=== PATIENT | male | born 1950 | race Caucasian/White ===

== ENCOUNTER 2024-01-16 09:22 | Inpatient (IN) | payer MEDICARE ==
[2024-01-16] VITALS (36 sets, daily range): BP systolic 77–129; BP diastolic 54–116; PULSE 71–135; RESP 11–30; TEMP 97.5–98.6
[~2024-01-16] VITALS: Ht 167.6 cm; Wt 79.8 kg
[2024-01-16] MEDS: SODIUM CHLORIDE 0.9% 1,000 ML IV ONE (09:52)
[2024-01-16 10:18] LABS: BASOPHILS % 0.8 % (0.0-2.0); EOSINOPHILS % 1.2 % (0.0-5.0); HEMATOCRIT. 40.3 % (42.0-52.0); HEMOGLOBIN. 13.5 g/dL (14.0-18.0); MEAN CORPUSCULAR HEMOGLOBIN 31.4 pg (28.0-32.0); MEAN CORPUSCULAR HGB CONC 33.4 g/dL (31.0-37.0); MEAN CORPUSCULAR VOLUME 93.8 fL (80.0-94.0); MEAN PLATELET VOLUME 9.7 fl (7.4-10.4); MONOCYTES % 8.7 % (2.0-8.0); NEUTROPHILS % 62.3 % (40.0-76.0); PLATELET 227 x1000/uL (130-400); RED CELL DISTRIBUTION WIDTH 13.7 % (11.6-14.6); WHITE BLOOD COUNT 6.5 x1000/uL (4.5-11.0)
[2024-01-16] MEDS: ADENOSINE 3 MG/ML 2ML VIAL IV ONE ×3 (10:19→10:20)
[2024-01-16 10:22] LABS: CARBON DIOXIDE 27 mEq/L (21-32); CHLORIDE 107 mEq/L (98-107); POTASSIUM 4.1 mEq/L (3.5-5.1); SODIUM 140 mEq/L (136-145)
[2024-01-16 10:23] LABS: CALCIUM 8.7 mg/dL (8.7-10.4)
[2024-01-16] MEDS: DILTIAZEM HCL 5MG/ML 5ML VIAL IV ONE (10:23)
[2024-01-16 10:28] LABS: CREATININE 1.1 mg/dL (0.6-1.3); GLUCOSE 101 mg/dL (70-105); UREA NITROGEN BLOOD 13 mg/dL (9-23)
[2024-01-16 10:29] LABS: TROPONIN I HIGH SENSITIVITY 18 ng/L (3.0-53)
[2024-01-16] MEDS ORDERED: DILTIAZEM HCL 60MG TABLET PO ONE (10:45)
[2024-01-16 11:25] LABS: CLARITY URINE CLEAR (CLEAR); COLOR URINE YELLOW (YELLOW); GLUCOSE URINE NEGATIVE (NEGATIVE); KETONES URINE NEGATIVE (NEGATIVE); LEUKOCYTE ESTERASE URINE NEGATIVE (NEGATIVE); NITRITE URINE NEGATIVE (NEGATIVE); OCCULT BLOOD URINE NEGATIVE (NEGATIVE); PROTEIN URINE NEGATIVE (NEGATIVE); SPECIFIC GRAVITY URINE 1.016 (1.005-1.030); UROBILINOGEN URINE 0.2 E.U./dL (0.2-1.0)
[2024-01-16 11:35] LABS: INR 0.9; PROTHROMBIN TIME 10.4 sec (9.6-11.0)
[2024-01-16] MEDS: DILTIAZEM HCL 30MG TABLET PO NR (12:30)
[2024-01-16] MEDS: ENOXAPARIN 60MG/0.6ML SYR SUBCUT ONE (12:34)
[2024-01-16] MEDS: DILTIAZEM HCL 5MG/ML 5ML VIAL IV NR (13:49)
[2024-01-16] MEDS ORDERED: AMIODARONE HCL 900 MG in DEXT 5% WATER 482 ML IV SCH (14:00)
[2024-01-16] MEDS: FUROSEMIDE 40MG/4ML VIAL IVP NR (14:14)
[2024-01-16] MEDS ORDERED: DILTIAZEM HCL 125 MG in DEXT 5% WATER 100 ML IV PRN (14:15)
[2024-01-16] MEDS: METOPROLOL TARTRATE 50MG TABLET PO NR (14:15)
[2024-01-16] MEDS: AMIODARONE HCL 900 MG in DEXT 5% WATER 482 ML IV SCH (14:17)
[2024-01-16] MEDS ORDERED: ONDANSETRON HCL 4MG/2ML INJ IV PRN (17:30)
[2024-01-16] MEDS: ENOXAPARIN 80MG/0.8ML SYR SUBCUT NR (19:03)
[2024-01-16] MEDS: METOPROLOL TARTRATE 50MG TABLET PO SCH (21:00)
[2024-01-16] MEDS: AMIODARONE HCL 200 MG TABLET PO SCH (21:28)
[2024-01-17] VITALS (103 sets, daily range): BP systolic 76–132; BP diastolic 25–117; PULSE 77–138; RESP 0–37; TEMP 97.4–99.5
[2024-01-17] MEDS: DILTIAZEM HCL 125 MG in DEXT 5% WATER 100 ML IV PRN (01:29)
[2024-01-17 06:49] LABS: BASOPHILS % 0.3 % (0.0-2.0); EOSINOPHILS % 0.6 % (0.0-5.0); HEMATOCRIT. 37.8 % (42.0-52.0); HEMOGLOBIN. 12.9 g/dL (14.0-18.0); LYMPHOCYTES % 21.1 % (20.0-50.0); MEAN CORPUSCULAR HEMOGLOBIN 31.6 pg (28.0-32.0); MEAN CORPUSCULAR HGB CONC 34.2 g/dL (31.0-37.0); MEAN CORPUSCULAR VOLUME 92.4 fL (80.0-94.0); MEAN PLATELET VOLUME 9.8 fl (7.4-10.4); PLATELET 235 x1000/uL (130-400); RED BLOOD CELL COUNT 4.09 mill/uL (4.7-6.1); RED CELL DISTRIBUTION WIDTH 13.6 % (11.6-14.6); WHITE BLOOD COUNT 8.7 x1000/uL (4.5-11.0)
[2024-01-17 07:15] LABS: CARBON DIOXIDE 23 mEq/L (21-32); CHLORIDE 108 mEq/L (98-107); POTASSIUM 4.1 mEq/L (3.5-5.1); SODIUM 140 mEq/L (136-145)
[2024-01-17 07:16] LABS: CALCIUM 8.8 mg/dL (8.7-10.4)
[2024-01-17 07:21] LABS: CREATININE 0.9 mg/dL (0.6-1.3); GLUCOSE 107 mg/dL (70-105); UREA NITROGEN BLOOD 11 mg/dL (9-23)
[2024-01-17 09:12] LABS: *AMPHETAMINES SCREEN URINE NEGATIVE (NEGATIVE); *BARBITURATES SCREEN URINE NEGATIVE (NEGATIVE); *BENZODIAZEPINES SCREEN URINE NEGATIVE (NEGATIVE); *COCAINE SCREEN URINE NEGATIVE (NEGATIVE); CANNABINOID URINE SCREEN NEGATIVE (NEGATIVE); ECSTASY MDMA SCREEN URINE NEGATIVE (NEGATIVE); METHADONE URINE SCREEN NEGATIVE (NEGATIVE); OPIATES URINE SCREEN NEGATIVE (NEGATIVE); PHENCYCLIDINE URINE SCREEN NEGATIVE (NEGATIVE)
[2024-01-17] MEDS: MIDODRINE HCL 5MG TABLET PO SCH (10:56)
[2024-01-17] MEDS: DIGOXIN 500MCG/2ML AMP IV NR (10:57)
[2024-01-17] MEDS: METOPROLOL TARTRATE 5MG/5ML VIAL IV PRN (17:08)
[2024-01-17] MEDS: DIGOXIN 500MCG/2ML AMP IV SCH (18:07)
[2024-01-17] MEDS: ACETAMINOPHEN 325MG TABLET PO PRN (19:56)
[2024-01-18] VITALS (87 sets, daily range): BP systolic 82–153; BP diastolic 38–134; PULSE 67–137; RESP 9–27; TEMP 97.8–99.2
[2024-01-18 07:06] LABS: CARBON DIOXIDE 24 mEq/L (21-32); CHLORIDE 109 mEq/L (98-107); POTASSIUM 3.8 mEq/L (3.5-5.1); SODIUM 140 mEq/L (136-145)
[2024-01-18 07:07] LABS: CALCIUM 8.7 mg/dL (8.7-10.4)
[2024-01-18 07:12] LABS: GLUCOSE 85 mg/dL (70-105); UREA NITROGEN BLOOD 13 mg/dL (9-23)
[2024-01-18 07:17] LABS: BASOPHILS % 0.2 % (0.0-2.0); HEMATOCRIT. 36.8 % (42.0-52.0); HEMOGLOBIN. 12.4 g/dL (14.0-18.0); LYMPHOCYTES % 18.1 % (20.0-50.0); MEAN CORPUSCULAR HEMOGLOBIN 31.7 pg (28.0-32.0); MEAN CORPUSCULAR HGB CONC 33.8 g/dL (31.0-37.0); MEAN CORPUSCULAR VOLUME 93.7 fL (80.0-94.0); MONOCYTES % 9.1 % (2.0-8.0); NEUTROPHILS % 71.6 % (40.0-76.0); PLATELET 212 x1000/uL (130-400); RED BLOOD CELL COUNT 3.92 mill/uL (4.7-6.1); RED CELL DISTRIBUTION WIDTH 13.8 % (11.6-14.6); WHITE BLOOD COUNT 7.9 x1000/uL (4.5-11.0)
[2024-01-18] MEDS: DIGOXIN 500MCG/2ML AMP IV NR (10:02)
[2024-01-18] MEDS: SODIUM CHLORIDE 0.9% 250 ML IV NR (10:03)
[2024-01-18] MEDS: AMIODARONE 150MG/100ML 100 ML IV NR (12:27)
[2024-01-19] VITALS (57 sets, daily range): BP systolic 77–156; BP diastolic 49–114; PULSE 75–130; RESP 11–23; TEMP 98–99
[2024-01-19 05:57] LABS: BASOPHILS % 0.3 % (0.0-2.0); EOSINOPHILS % 0.9 % (0.0-5.0); HEMATOCRIT. 35.9 % (42.0-52.0); HEMOGLOBIN. 12.3 g/dL (14.0-18.0); LYMPHOCYTES % 19.2 % (20.0-50.0); MEAN CORPUSCULAR HEMOGLOBIN 32.1 pg (28.0-32.0); MEAN CORPUSCULAR HGB CONC 34.3 g/dL (31.0-37.0); MEAN CORPUSCULAR VOLUME 93.5 fL (80.0-94.0); MEAN PLATELET VOLUME 10.1 fl (7.4-10.4); NEUTROPHILS % 68.6 % (40.0-76.0); PLATELET 217 x1000/uL (130-400); RED BLOOD CELL COUNT 3.84 mill/uL (4.7-6.1); RED CELL DISTRIBUTION WIDTH 13.5 % (11.6-14.6); WHITE BLOOD COUNT 7.5 x1000/uL (4.5-11.0)
[2024-01-19 06:16] LABS: CHLORIDE 107 mEq/L (98-107); POTASSIUM 3.8 mEq/L (3.5-5.1); SODIUM 139 mEq/L (136-145)
[2024-01-19 06:19] LABS: CALCIUM 8.7 mg/dL (8.7-10.4); CARBON DIOXIDE 24 mEq/L (21-32)
[2024-01-19 06:24] LABS: GLUCOSE 93 mg/dL (70-105); UREA NITROGEN BLOOD 10 mg/dL (9-23)
[2024-01-19 06:26] LABS: ALANINE AMINOTRANSFERASE 16 IU/L (10-49); ALBUMIN 3.5 g/dL (3.2-4.8); ASPARTATE AMINOTRANSFERASE 17 IU/L (<34); BILIRUBIN TOTAL 0.6 mg/dL (0.1-1.0); PROTEIN TOTAL 6.5 g/dL (6.0-8.3)
[2024-01-20] VITALS (29 sets, daily range): BP systolic 87–140; BP diastolic 42–95; PULSE 64–123; RESP 10–24; TEMP 97.7–99
[2024-01-20] MEDS ORDERED: TETRACAINE/BENZOCAINE/BUTAMBEN 20 GM SPRAY MM ONE (12:01)
[2024-01-20] MEDS ORDERED: LIDOCAINE 2% 6ML GLYDO MM ONE (12:01)
[2024-01-20] MEDS ORDERED: FENTANYL CITRATE/PF 50MCG/ML 2ML VIAL ONE ×2 (12:32→12:45)
[2024-01-20] MEDS ORDERED: MIDAZOLAM HCL 2 MG/2 ML VIAL ONE ×3 (12:32→13:17)
[2024-01-21] VITALS (8 sets, daily range): BP systolic 97–113; BP diastolic 52–71; PULSE 56–65; RESP 12–20; TEMP 97.2–98.2; O2SAT 96
[2024-01-21] MEDS ORDERED: METO25TA6 MT (12:52)
[2024-01-21] MEDS ORDERED: APIX5TAB MT (12:52)
[2024-01-21] MEDS ORDERED: AMIO100T4 MT (12:52)
[2024-01-22] MEDS ORDERED: AMIODARONE HCL 200 MG TABLET PO SCH (09:00)
== END 2024-01-21 16:55 | disposition home or self-care (01) | DRG 308 ==
LOC: ER 09:22 → CVICU 12:16 → EDBEDREQ 12:25 → EDBEDREQTM 12:27 → EDBEDREQSVC 16:19 → 5EST 01-20 09:25
PROVIDERS: ADMIT Internal Medicine; ATTEND Internal Medicine
PROC: B24BZZ4 Ultrasonography of Heart with Aorta, Transesophageal (ICD-10-PCS; principal; 2024-01-20)
PROC: 5A2204Z Restoration of Cardiac Rhythm, Single (ICD-10-PCS; 2024-01-20)
DX: I44.1 Atrioventricular block, second degree (principal); I50.43 Acute on chronic combined systolic (congestive) and diastolic (congestive) heart failure; I47.10 Supraventricular tachycardia, unspecified; I95.9 Hypotension, unspecified; I48.92 Unspecified atrial flutter; I48.91 Unspecified atrial fibrillation; Z20.822 Contact with and (suspected) exposure to COVID-19
CPT/HCPCS: 36415; 71045; 80048; 80053; 80162; 80305; 81003; 83605; 83880; 84145; 84443; 84484; 85025; 85379; 87426; 93005; 93306; 93312; 93970; 99291; J0153; J0282; J1160; J1650; J1940; J2250; J3010; J3490; J7030; J7060